=== PATIENT | female | born 1990 | race Caucasian/White ===

== ENCOUNTER 2021-09-03 08:20 | Outpatient (CLI) | payer BC, OTHER ==
[2021-09-03 15:05] LABS: Mean Corpuscular HGB CONC 31.1 g/dL (32.0-36.0); Mean Corpuscular Hemoglobin 28.3 pg (27.0-33.0); Platelet Count 263 10x3/uL (150-450); RBC Distribution Width 15.4 % (11.5-14.5); Red Blood Cell (RBC) Count 4.24 10x6/uL (3.90-5.03); White Blood Cell (WBC) Count 12.8 10x3/uL (3.5-10.5)
[2021-09-03 15:31] LABS: Syphilis Antibody Nonreactive (Nonreactive); Syphilis Antibody Index 0.08 S/CO (<1.00 Non-Reactive)
[2021-09-03 15:34] LABS: HIV (1/2) Antibody/Antigen Non-Reactive (NonReactive); HIV 1/2 INDEX 0.06 S/CO (<1.00); Hep B Surf Ag Non-Reactive S/CO (NonReactive)
== END 2021-09-03 08:21 | disposition home or self-care (01) ==
LOC: CSHLD/OP 08:20
PROVIDERS: ATTEND Obstetrics & Gynecology
DX: Z01.812 Encounter for preprocedural laboratory examination (principal); Z86.16 Personal history of COVID-19; O34.211 Maternal care for low transverse scar from previous cesarean delivery
CPT/HCPCS: 85027; 86780; 86900; 86901; 87340; 87389

== ENCOUNTER 2021-09-07 05:38 | Inpatient (IN) | payer BC, OTHER ==
[2021-09-07] MEDS ORDERED: Ondansetron PF 4 MG/2 ML Vial IVP PRN ×3 (05:49→09:04)
[2021-09-07] MEDS ORDERED: Famotidine/PF 20 mg/2ml Vial SLOW IVP PRN (05:49)
[2021-09-07] MEDS ORDERED: Lactated Ringer's 1,000 ML IV SCH (05:49)
[2021-09-07] MEDS ORDERED: hydrALAZINE 20 MG/ML VIAL SLOW IVP PRN ×2 (05:49→09:04)
[2021-09-07] MEDS ORDERED: ceFAZolin 2 GM/Dextrose 50 ML 2 GM in Premix Bag 1 BAG IVPB SCH (05:49)
[2021-09-07] MEDS ORDERED: Bicitra 30 ML UDCUP PO PRN (05:49)
[2021-09-07] MEDS ORDERED: Promethazine HCl 25 MG/ML VIAL IM PRN ×2 (05:49→06:55)
[2021-09-07 06:00] VITALS: BMI 36.4
[2021-09-07] MEDS ORDERED: Hydrocerin (Eucerin) Cream 120 gm Jar TOP PRN (06:55)
[2021-09-07] MEDS ORDERED: Promethazine HCl 25 MG SUPP PR PRN (06:55)
[2021-09-07] MEDS ORDERED: Meperidine HCl/PF 25 MG/ML VIAL SLOW IVP PRN (06:55)
[2021-09-07] MEDS ORDERED: Ondansetron HCl/PF 4 MG/2 ML Vial IVP PRN (06:55)
[2021-09-07] MEDS ORDERED: HYDROmorphone 2 MG/ML VIAL SLOW IVP PRN (06:55)
[2021-09-07] MEDS ORDERED: Naloxone HCl 0.4 mg/ml Vial IV PRN (06:55)
[2021-09-07] MEDS ORDERED: Fentanyl 100 MCG/2 ML VIAL SLOW IVP PRN (06:55)
[2021-09-07] MEDS ORDERED: Naloxone HCl 0.4 mg/ml Vial IVP PRN ×2 (06:55)
[2021-09-07] MEDS ORDERED: diphenhydrAMINE 50 MG/ML VIAL IVP PRN (06:55)
[2021-09-07] MEDS ORDERED: Ketorolac Tromethamine 30 MG/ML VIAL IVP SCH (07:00)
[2021-09-07] MEDS ORDERED: Communication Order-Pharmacy FS SCH (07:00)
[2021-09-07] MEDS ORDERED: Morphine PF 10 MG/10 ML VIAL ONE (07:11)
[2021-09-07] MEDS ORDERED: Fentanyl 100 MCG/2 ML VIAL ONE (07:12)
[2021-09-07] MEDS ORDERED: Oxytocin 10 UNITS/ML VIAL ONE ×2 (07:12→08:06)
[2021-09-07] MEDS ORDERED: Phenylephrine 10 MG/ML VIAL ONE (07:12)
[2021-09-07] MEDS ORDERED: Ondansetron PF 4 MG/2 ML Vial ONE (07:12)
[2021-09-07] MEDS ORDERED: Ketorolac Tromethamine 30 MG/ML VIAL ONE (08:38)
[2021-09-07] MEDS ORDERED: Boostrix 0.5 ML (Tdap) VIAL IM ONE (09:04)
[2021-09-07] MEDS ORDERED: Acetaminophen 325 MG TAB PO PRN (09:04)
[2021-09-07] MEDS ORDERED: Bisacodyl 10 MG SUPP PR PRN (09:04)
[2021-09-07] MEDS ORDERED: diphenhydrAMINE 25 MG CAP PO PRN (09:04)
[2021-09-07] MEDS ORDERED: Misoprostol 200 MCG TAB PR PRN (09:04)
[2021-09-07] MEDS ORDERED: NS w/ Oxytocin 30 units 500 ML IV SCH (09:15)
[2021-09-07] MEDS: Lactated Ringer's 1,000 ML IV SCH (11:37)
[2021-09-07] MEDS: Ketorolac Tromethamine 30 MG/ML VIAL IVP PRN ×2 (14:21→20:52)
[2021-09-07] MEDS ORDERED: Zolpidem Tartrate 5 MG TAB PO PRN (21:00)
[2021-09-08] MEDS: Docusate 100 MG CAP PO SCH ×3 (02:16→22:24)
[2021-09-08] MEDS: Ferrous Sulfate 325 MG TAB PO SCH ×3 (02:16→22:24)
[2021-09-08] MEDS: Lactated Ringer's 1,000 ML IV SCH ×4 (02:17→23:52)
[2021-09-08] MEDS: Ketorolac Tromethamine 30 MG/ML VIAL IVP PRN (04:29)
[2021-09-08] MEDS: Ibuprofen 800 MG TAB PO SCH ×3 (06:42→22:23)
[2021-09-08 06:52] LABS: Hemoglobin 9.7 g/dL (12.0-15.5); Mean Corpuscular HGB CONC 31.7 g/dL (32.0-36.0); Mean Corpuscular Hemoglobin 28.7 pg (27.0-33.0); Mean Corpuscular Volume 90.5 fl (81.6-98.3); Mean Platelet Volume 10.8 fl (7.4-10.4); Platelet Count 182 10x3/uL (150-450); RBC Distribution Width 15.5 % (11.5-14.5); Red Blood Cell (RBC) Count 3.38 10x6/uL (3.90-5.03); White Blood Cell (WBC) Count 9.6 10x3/uL (3.5-10.5)
[2021-09-08] MEDS: Simethicone Chewable 80 MG TAB PO PRN ×4 (09:16→22:23)
[2021-09-08] MEDS: Acetaminophen/Codeine 30-300mg Tablet PO PRN ×4 (09:16→22:23)
[2021-09-08] MEDS ORDERED: HYDROcodone/Acetaminophen 5/325 mg Tablet PO PRN ×2 (20:00)
[2021-09-09] MEDS: Simethicone Chewable 80 MG TAB PO PRN ×3 (02:20→12:38)
[2021-09-09] MEDS: Acetaminophen/Codeine 30-300mg Tablet PO PRN ×3 (02:21→12:33)
[2021-09-09] MEDS: Ibuprofen 800 MG TAB PO SCH (06:16)
[2021-09-09 07:54] VITALS: BP 122/75; TEMP 98.8
[2021-09-09] MEDS: Ferrous Sulfate 325 MG TAB PO SCH (08:36)
[2021-09-09] MEDS: Docusate 100 MG CAP PO SCH (08:36)
[2021-09-09] MEDS: Lactated Ringer's 1,000 ML IV SCH (12:09)
== END 2021-09-09 13:50 | disposition home or self-care (01) | DRG 788 ==
LOC: CSHLD 05:38 → CSHPP 11:10
PROVIDERS: ADMIT Obstetrics & Gynecology; ATTEND Obstetrics & Gynecology
PROC: 10D00Z1 Extraction of Products of Conception, Low, Open Approach (ICD-10-PCS; principal; 2021-09-07)
DX: O34.211 Maternal care for low transverse scar from previous cesarean delivery (principal); Z37.0 Single live birth; Z3A.39 39 weeks gestation of pregnancy; O32.8XX0 Maternal care for other malpresentation of fetus, not applicable or unspecified; O69.81X0 Labor and delivery complicated by cord around neck, without compression, not applicable or unspecified
CPT/HCPCS: 51702; 85027; 86850; 86900; 86901; J0690; J1885; J2274; J2370; J2405; J2590; J3010; J7120; S0028